=== PATIENT | female | born 1950 | race African-American/Black ===

== ENCOUNTER 2020-08-23 08:25 | Inpatient (IN) | payer OTHER ==
[~2020-08-23] VITALS: Ht 157.5 cm; Wt 73.9 kg
[2020-08-23] MEDS ORDERED: COZAAR50 MG (08:41)
[2020-08-23] MEDS ORDERED: LIPITOR20 MG (08:41)
[2020-08-24] MEDS ORDERED: MAXIMUM D3325 MCG (13:41)
[2020-08-24] MEDS ORDERED: LOSARTAN-HCTZ1 EACH (13:41)
[2020-08-24] MEDS ORDERED: AZITHROMYCIN500 MG (13:41)
== END 2020-08-26 11:17 | disposition home or self-care (01) | DRG 390 ==
LOC: ER 08:25 → SURG 17:07
PROVIDERS: ADMIT Surgery; ATTEND Surgery
PROC: BW2110Z Computerized Tomography (CT Scan) of Abdomen and Pelvis using Low Osmolar Contrast, Unenhanced and Enhanced (ICD-10-PCS; principal; 2020-08-23)
DX: K56.600 Partial intestinal obstruction, unspecified as to cause (principal); I10 Essential (primary) hypertension; Z20.822 Contact with and (suspected) exposure to COVID-19

== ENCOUNTER 2020-11-17 09:28 | Outpatient (CLI) | payer OTHER ==
[~2020-11-17 09:28] MED LIST: AZITHROMYCIN500 MG; COZAAR50 MG; LIPITOR20 MG; LOSARTAN-HCTZ1 EACH; MAXIMUM D3325 MCG
== END 2020-11-17 09:40 | disposition home or self-care (01) ==
LOC: NUCLEAR 09:28
PROVIDERS: ATTEND Surgery
DX: C44.599 Other specified malignant neoplasm of skin of other part of trunk (principal)
CPT/HCPCS: 78815; A9552